=== PATIENT | male | born 1995 | race Caucasian/White ===

== ENCOUNTER 2016-11-22 18:38 | Emergency (ER) | payer MEDICAID ==
[2016-11-22 19:05] VITALS: BP 149/85
== END 2016-11-22 20:45 | disposition home or self-care (01) ==
LOC: ED 18:38
DX: S63.501A Unspecified sprain of right wrist, initial encounter (principal); W01.0XXA Fall on same level from slipping, tripping and stumbling without subsequent striking against object, initial encounter; Y93.89 Activity, other specified; Y99.8 Other external cause status; Y92.89 Other specified places as the place of occurrence of the external cause
CPT/HCPCS: A4570

== ENCOUNTER 2017-07-21 18:02 | Emergency (ER) | payer MEDICAID ==
[~2017-07-21] VITALS: Ht 182.9 cm; Wt 74.8 kg
[2017-07-21 18:17] VITALS: Ht 182.9 cm; Wt 74.8 kg
[2017-07-21 21:30] VITALS: BP 140/72
== END 2017-07-21 21:30 | disposition home or self-care (01) ==
LOC: ED 18:02
DX: K60.2 Anal fissure, unspecified (principal)

== ENCOUNTER 2018-06-30 02:40 | Emergency (ER) | payer MEDICAID ==
[~2018-06-30] VITALS: Ht 182.9 cm; Wt 80.7 kg
[2018-06-30 02:57] VITALS: Ht 182.9 cm; Wt 80.7 kg
[2018-06-30 06:00] VITALS: BP 138/79
== END 2018-06-30 04:45 | disposition home or self-care (01) ==
LOC: ED 02:40
DX: H16.8 Other keratitis (principal)
CPT/HCPCS: J1885

== ENCOUNTER 2019-06-11 16:01 | Inpatient (IN) | payer MEDICAID ==
[~2019-06-11] VITALS: Ht 185.4 cm; Wt 74.4 kg
[2019-06-11 16:05] VITALS: Ht 185.4 cm; Wt 74.4 kg
[2019-06-11 17:43] LABS: BASOPHIL % 0.6 % (0-2); PLATELET COUNT 199 x10^3mcL (130-400)
[2019-06-11 17:46] LABS: RED CELL DISTRIBUTION WIDTH 17.3 % (11.5-14.5)
[2019-06-11 18:07] LABS: CALCIUM 8.4 mg/dL (8.5-10.1); CARBON DIOXIDE 28.3 mmol/L (21-32); CHLORIDE SERUM 105 mmol/L (98-107); CREATININE SERUM 0.5 mg/dL (0.7-1.3); GFR1 > 60 mL/min; GLUCOSE SERUM 147 mg/dL (74-106); SODIUM SERUM 141 mmol/L (136-145)
[2019-06-11 18:24] LABS: ALBUMIN 3.6 g/dL (3.4-5.0); ALKALINE PHOSPHATASE 233 U/L (46-116); ALT/SGPT 28 U/L (16-63); AST/SGOT 22 U/L (15-37); BILIRUBIN TOTAL 0.99 mg/dL (0.20-1.00); C REACTIVE PROTEIN < 0.2 mg/dL (<=0.9); TOTAL PROTEIN, SERUM 6.9 g/dL (6.4-8.2)
[2019-06-11 18:25] LABS: microscopic required? YES; urine erythrocyte NEGATIVE (NEGATIVE)
[2019-06-11 18:29] LABS: T3 TOTAL > 8.00 ng/mL
[2019-06-11 18:32] LABS: ERYTHROCYTE SED RATE 4 mm/hr (0-15)
[2019-06-11 18:52] LABS: FREE T4 > 8.0 ng/dL (0.76-1.46)
[2019-06-11 18:53] LABS: FREE THYROXINE INDEX 16.6 ug/dL (1.4-4.5); T4(THYROXINE) 30.7 ug/dL (4.7-13.3)
[2019-06-11 20:55] LABS: AMPHETAMINE QUAL UR NONE DETECTED (See below)
[2019-06-12 01:11] VITALS: BP 129/69
[2019-06-12 05:58] VITALS: BP 144/80
[2019-06-12 07:12] LABS: BASOPHIL % 0.4 % (0-2); PLATELET COUNT 167 x10^3mcL (130-400)
[2019-06-12 07:19] LABS: RED CELL DISTRIBUTION WIDTH 17.2 % (11.5-14.5)
[2019-06-12 07:56] LABS: CALCIUM 8.5 mg/dL (8.5-10.1); CARBON DIOXIDE 27.1 mmol/L (21-32); CHLORIDE SERUM 108 mmol/L (98-107); CREATININE SERUM 0.3 mg/dL (0.7-1.3); GFR1 > 60 mL/min; GLUCOSE SERUM 93 mg/dL (74-106); MAGNESIUM 1.5 mg/dL (1.8-2.4); PHOSPHOROUS 4.4 mg/dL (2.5-4.9); POTASSIUM SERUM 3.5 mmol/L (3.5-5.1); SODIUM SERUM 144 mmol/L (136-145)
== END 2019-06-12 05:50 | disposition left against medical advice (07) | DRG 427 ==
LOC: ED 16:01 → MU 19:54 → DU 06-12 00:47
PROVIDERS: Specialist; ADMIT Internal Medicine
DX: E05.90 Thyrotoxicosis, unspecified without thyrotoxic crisis or storm (principal); E87.2 Acidosis; E83.51 Hypocalcemia; R11.10 Vomiting, unspecified; K59.00 Constipation, unspecified; I10 Essential (primary) hypertension; D64.9 Anemia, unspecified; F12.10 Cannabis abuse, uncomplicated; Z53.29 Procedure and treatment not carried out because of patient's decision for other reasons
CPT/HCPCS: 36600; 84439; G0378; J3490; Q0092

== ENCOUNTER 2019-06-26 14:16 | Inpatient (IN) | payer MEDICAID ==
[~2019-06-26] VITALS: Ht 185.4 cm; Wt 74.4 kg
[2019-06-26 14:26] VITALS: Ht 185.4 cm; Wt 74.4 kg
[2019-06-26 17:13] LABS: BASOPHIL % 0.4 % (0-2); PLATELET COUNT 179 x10^3mcL (130-400)
[2019-06-26 17:24] LABS: CALCIUM 8.2 mg/dL (8.5-10.1); CARBON DIOXIDE 27.6 mmol/L (21-32); CHLORIDE SERUM 107 mmol/L (98-107); CREATININE SERUM 0.4 mg/dL (0.7-1.3); GFR1 > 60 mL/min; GLUCOSE SERUM 100 mg/dL (74-106); POTASSIUM SERUM 4.1 mmol/L (3.5-5.1); SODIUM SERUM 143 mmol/L (136-145)
[2019-06-26 17:28] LABS: ALBUMIN 3.4 g/dL (3.4-5.0); ALKALINE PHOSPHATASE 222 U/L (46-116); ALT/SGPT 27 U/L (16-63); AST/SGOT 24 U/L (15-37); BILIRUBIN TOTAL 1.3 mg/dL (0.20-1.00); TOTAL PROTEIN, SERUM 6.6 g/dL (6.4-8.2)
[2019-06-26 17:29] LABS: RED CELL DISTRIBUTION WIDTH 16.6 % (11.5-14.5)
[2019-06-26 18:15] LABS: T4(THYROXINE) 28.5 ug/dL (4.7-13.3)
[2019-06-26 20:44] VITALS: BP 120/73
[2019-06-26 22:34] VITALS: BP 98/50
[2019-06-27 05:45] VITALS: BP 108/50
[2019-06-27 06:28] LABS: BASOPHIL % 0.4 % (0-2); PLATELET COUNT 162 x10^3mcL (130-400); RED CELL DISTRIBUTION WIDTH 17.2 % (11.5-14.5)
[2019-06-27 06:41] LABS: CALCIUM 8.2 mg/dL (8.5-10.1); CARBON DIOXIDE 25.2 mmol/L (21-32); CHLORIDE SERUM 108 mmol/L (98-107); CREATININE SERUM 0.4 mg/dL (0.7-1.3); GFR1 > 60 mL/min; GLUCOSE SERUM 94 mg/dL (74-106); MAGNESIUM 1.4 mg/dL (1.8-2.4); PHOSPHOROUS 3.6 mg/dL (2.5-4.9); POTASSIUM SERUM 3.9 mmol/L (3.5-5.1); SODIUM SERUM 141 mmol/L (136-145)
[2019-06-27 08:32] VITALS: BP 125/71
[2019-06-27 11:55] LABS: T3 TOTAL 6.93 ng/mL
[2019-06-27 12:01] VITALS: BP 131/78
[2019-06-27 12:21] LABS: FREE T4 9.23 ng/dL (0.76-1.46)
[2019-06-27] MEDS ORDERED: TRA100 PO (13:09)
[2019-06-27] MEDS ORDERED: TAP5 PO (13:09)
[2019-06-27 14:48] LABS: FREE THYROXINE INDEX 14.5 ug/dL (1.4-4.5)
== END 2019-06-27 15:05 | disposition home or self-care (01) | DRG 427 ==
LOC: ED 14:16 → DU 19:09
PROVIDERS: Emergency Medicine; ADMIT General Practice
DX: E05.20 Thyrotoxicosis with toxic multinodular goiter without thyrotoxic crisis or storm (principal); E87.2 Acidosis; E83.51 Hypocalcemia; E80.6 Other disorders of bilirubin metabolism; R00.2 Palpitations; I10 Essential (primary) hypertension; D64.9 Anemia, unspecified; F10.10 Alcohol abuse, uncomplicated; F12.10 Cannabis abuse, uncomplicated; Z68.22 Body mass index [BMI] 22.0-22.9, adult
CPT/HCPCS: 84439; G0378; J2060; J2405; J7030; Q0092